=== PATIENT | female | born 1970 | race Caucasian/White ===

== ENCOUNTER 2017-02-23 21:36 | Emergency (ER) | payer OTHER ==
[~2017-02-23] VITALS: Ht 167.6 cm; Wt 57.0 kg
[~2017-02-23 21:36] MED LIST: ALBU18HF INHALATION; ALBU8.5H3 INH; BECL8.7A INH; D-ME118S6 PO; GUAI-637 PO; PRED20TA PO
[2017-02-23 21:52] VITALS: Ht 167.6 cm; Wt 57.0 kg
[2017-02-23] MEDS ORDERED: METHYLPREDNISOLONE 125 MG INJ IM STA (22:33)
[2017-02-23] MEDS ORDERED: ALBUTEROL 0.5% (NEB) 2.5 MG/0.5 ML AMP INH STA (22:33)
[2017-02-23] MEDS ORDERED: IPRATROPIUM (NEB) 0.5 MG/2.5 ML AMP INH STA (22:33)
--- NOTE | 2017-02-23 23:37 | RADRPT ---
PROCEDURE: XR Chest. CLINICAL INDICATION: Asthma exacerbation. Shortness of breath TECHNIQUE: Portable AP upright view of the chest was obtained. COMPARISON: 07/07/2016 FINDINGS: The cardiomediastinal silhouette is within normal limits. The lungs are clear. The diaphragm is nor mal in position and there is no evidence of hyperinflation. There is no evidence for pleural effusi on, pneumothorax or pulmonary vascular congestion. The osseous structures are intact with no eviden ce for acute abnormality. RPTAT:HJJR IMPRESSION: No evidence for acute intrathoracic pathology. Physician Selam Date Time Electronically viewed and signed by Physician Selam on 02/23/2017 23:36 JR/
[2017-02-24] MEDS ORDERED: PRED20TA PO (00:41)
[2017-02-24] MEDS ORDERED: ALBU18HF INHALATION ×2 (00:41→18:03)
[2017-02-24 01:01] VITALS: BP 108/73; PULSE 113; RESP 18; TEMP 99.6
--- NOTE | 2017-02-24 05:56 | ERD ---
ER Documentation Chief Complaint Date/Time DATE: 02/24/17 TIME: 05:53 Chief Complaint asthma getting worse bilateral inspiratory and expiratory wheezing HPI 47-year-old female patient with a past medical history of asthma presents to the ED complaining of wheezing and dry cough that started earlier today. Reports that she does get many asthma attacks. States that she has a burning sensation in her chest when she coughs. Reports that she is using an inhaler. Denies any chest pain, nausea, vomiting, diarrhea, abdominal pain, neck stiffness, fever, chills. ROS All systems reviewed and are negative except as per history of present illness. Medications Home Meds Active Scripts Albuterol Sulfate* (Ventolin HFA*) 18 Gm Hfa.aer.ad, 2 PUFF INHALATION Q4H, #1 INHALER Prov:NICHELLE GONZALES PA-C 02/24/17 Prednisone* (Prednisone*) 20 Mg Tab, 40 MG PO DAILY for 4 Days, TAB Prov:NICHELLE GONZALES PA-C 02/24/17 Guaifenesin* (Robitussin*) 100 Mg/5 Ml Syrup, 200 MG PO Q4H Y for COUGH, #4 OZ Prov:EMERSON GARCIA NP 07/07/16 Albuterol Sulfate* (Proair HFA*) 8.5 Gm Hfa.aer.ad, 2 PUFF INH Q4, #1 INHALER Prov:EMERSON GARCIA NP 07/07/16 Prednisone* (Prednisone*) 20 Mg Tab, 40 MG PO DAILY for 4 Days, TAB Prov:EMERSON GARCIA NP 07/07/16 Prednisone* (Prednisone*) 20 Mg Tab, 40 MG PO DAILY for 4 Days, TAB Prov:SILAS PADILLA DO 02/10/16 Beclomethasone Dip* (Qvar 40*) 7.3 Gm Inha, 1 PUFF INH BID, #1 INHALER Prov:SILAS PADILLA DO 02/10/16 Albuterol Sulfate* (Proair HFA*) 8.5 Gm Hfa.aer.ad, 2 PUFF INH Q6H Y for WHEEZING AND SOB, #1 INHALER Prov:SILAS PADILLA DO 02/10/16 Albuterol Sulfate* (Ventolin HFA*) 18 Gm Hfa.aer.ad, 2 PUFF INHALATION Q4H, #1 INHALER Prov:LINDSAY PARKS MD 12/25/15 Dextromethorphan Hb-Promethazine Hcl (Promethazine DM Syrup) 180 Ml Syrup, 5 ML PO Q6H Y for COUGH, #4 OZ Prov:LINDSAY PARKS MD 12/25/15 Prednisone* (Prednisone*) 20 Mg Tab, 40 MG PO DAILY for 4 Days, TAB Prov:LINDSAY PARKS MD 12/25/15 Allergies Allergies: Coded Allergies: No Known Drug Allergies (Verified Allergy, Unknown, 07/07/16) PMhx/Soc History of Surgery: Yes () Anesthesia Reaction: No Hx Neurological Disorder: No Hx Respiratory Disorders: Yes (Asthma) Hx Cardiac Disorders: No Hx Psychiatric Problems: No Hx Miscellaneous Medical Probl: No Hx Alcohol Use: No Hx Substance Use: No Hx Tobacco Use: No Physical Exam Vitals Vital Signs Date Time Temp Pulse Resp B/P Pulse Ox O2 Delivery O2 Flow Rate FiO2 02/24/17 01:01 99.6 113 18 108/73 94 Room Air 02/23/17 22:59 Simple Mask 02/23/17 22:48 112 20 92 21 02/23/17 21:52 97.8 108 22 114/76 95 Physical Exam Const: Blo-hkm-mwvkmbrce, well-nourished. In no acute distress. Head: Atraumatic, normocephalic Eyes: Normal Conjunctiva without injection. No purulent discharge. PERRL. EOMI ENT: Normal external ear. Ear canal without erythema. Tympanic membrane pearly lau without effusion or bulging. Nasal canal clear with normal turbinates. Moist oropharynx without tonsillar exudates. Non-erythematous pharynx. Uvula midline. No drooling. No trismus. Neck: Full range of motion. No meningismus. No cervical lymphadenopathy. Resp: Expiratory and inspiratory wheezing. No wheezing, rhonchi, rales, or crackles. No accessory muscle use. No retractions. Cardio: Regular rate and rhythm. No murmurs, rubs or gallops. Abd: Soft, non tender, non distended. Normal bowel sounds. No palpable masses. No rebound tenderness. No guarding. Skin: No petechiae or rashes Back: No midline tenderness. No CVA tenderness. Ext: No cyanosis, or edema. Neur: Awake and alert. Psych: Normal Mood and Affect Results 24 hrs Current Medications Medications (Trade) Dose Ordered Sig/Scooby Route PRN Reason Start Time Stop Time Status Last Admin Dose Admin Albuterol (Proventil 0.5% (Neb)) 10 mg ONCE STAT INH 02/23/17 22:33 02/23/17 22:35 DC 02/23/17 22:47 Ipratropium [place] (Atrovent 0.02% (Neb)) 1 mg ONCE STAT INH 02/23/17 22:33 02/23/17 22:35 DC 02/23/17 22:47 Methylprednisolone Sodium Succinate (Solu-Medrol) 125 mg ONCE STAT IM 02/23/17 22:33 02/23/17 22:35 DC 02/23/17 22:58 Procedures/MDM 47-year-old female patient with no sniffing a past medical history presents the ED complaining of wheezing, shortness of breath, cough that started yesterday. Patient is afebrile and nontoxic-appearing. Patient was treated here in the ED with continuous 10 mg albuterol, 1 mg Atrovent, 125 mg IM Solu-Medrol. A chest x-ray was ordered to further evaluate patient. PROCEDURE: XR Chest. CLINICAL INDICATION: Asthma exacerbation. Shortness of breath TECHNIQUE: Portable AP upright view of the chest was obtained. COMPARISON: 07/07/2016 FINDINGS: The cardiomediastinal silhouette is within normal limits. The lungs are clear. The diaphragm is normal in position and there is no evidence of hyperinflation. There is no evidence for pleural effusion, pneumothorax or pulmonary vascular congestion. The osseous structures are intact with no evidence for acute abnormality. RPTAT:HJJR IMPRESSION: No evidence for acute intrathoracic pathology. Patient likely has an asthma exacerbation. Low suspicion for atypical GA, pneumonia, pulmonary embolism, pneumothorax, cardiac tamponade, sinusitis, peritonsillar abscess, mastoiditis, Sai's angina, retropharyngeal abscess, meningitis, sepsis or other emergent conditions. Patient's respiratory status has stabilized while in the department and is appropriate for outpatient work up. Exam and work up not consistent w/ impending respiratory failure or cardiovascular collapse. Patient speaking full sentences and verbalizes that she feels better. Discharge medications: Prednisone, Ventolin Follow up with primary care physician in 1-2 days. Instructed patient to return to the ED sooner for any worsening symptoms. Patient's questions were answered. Patient understood and agreed with discharge plan. Patient discharged stable. Departure Diagnosis: Primary Impression: Asthma with acute exacerbation Asthma severity: unspecified severity Qualified Code: J45.901 - Asthma with acute exacerbation, unspecified asthma severity Condition: Stable Patient Instructions: Asthma Medications, Asthma, Acute (Adult) Referrals: [facility] (PCP) [facility] ([facility]) Usted se kramer hecho un examen mdico de control que le indica que no est en vega condicin que requiera tratamiento urgente en el Departamento de Emergencia. Un estudio ms profundo y el tratamiento de watts condicin pueden esperar sin ningn riesgo hasta que usted sea atendida/o en el consultorio de watts mdico o vega cl gustavo. Es responsabilidad suya arreglar vega chris para el seguimiento del manohar. MANEJO DE CONDICIONES NO URGENTES EN EL FUTURO 1) Si usted tiene un mdico de atencin primaria: Usted debera llamar a watts mdico de atencin primaria antes de venir al departamento de emergencia. Despus de las horas de consultorio, watts doctor o watts asociado/a est disponible por telfono. El mdico o enfermero de alfonso en el servicio telefnico puede asesorarle por bonita medio para atender el problema, o manohar contrario se puede programar vega chris. 2) Si usted no tiene un mdico de atencin primaria: Llame al mdico o clnica de referencia que aparece abajo joao las horas de consultorio para hacer evga chris para que le vean. CLINICAS: [facility] 920 [phone] [id number] [facility] 472 [phone] [address] [facility] 457 [phone] [facility] [facility] [phone] [address] [facility]. [facility] 040 [phone] [address] [facility]. [phone] [address] [facility]. [facility] () Usted se kramer hecho un examen mdico de control que le indica que no est en vega condicin que requiera tratamiento urgente en el Departamento de Emergencia. Un estudio ms profundo y el tratamiento de watts condicin pueden esperar sin ningn riesgo hasta que usted sea atendida/o en el consultorio de watts mdico o vega cl gustavo. Es responsabilidad suya arreglar vega chris para el seguimiento del manohar. MANEJO DE CONDICIONES NO URGENTES EN EL FUTURO 1) Si usted tiene un mdico de atencin primaria: Usted debera llamar a watts mdico de atencin primaria antes de venir al departamento de emergencia. Despus de las horas de consultorio, watts doctor o watts asociado/a est disponible por telfono. El mdico o enfermero de alfonso en el servicio telefnico puede asesorarle por bonita medio para atender el problema, o manohar contrario se puede programar vega chris. 2) Si usted no tiene un mdico de atencin primaria: Llame al mdico o condado institucions de referencia que aparece abajo joao las horas de consultorio para hacer vega chris para que le vean. SI USTED NO PUEDE PAGAR PARA YAYO UN MEDICO puede ir a: [facility] [address] [place] [address] [facility] [address] [place] [address] [facility] [address] [place] [address] [facility] [address] [place] [address] Additional Instructions: Llame al doctor MAANA y kristopher vega CHRIS PARA DENTRO DE 1-2 LEY para evaluacin adicional y tratamiento de watts asma.Dgale a la secretaria que nosotros le instruimos hacer esta chris. Avise o llame si watts condicin se empeora antes de la chris. Regresa aqui si peor o no mejor. NICHELLE GONZALES PA-C Feb 24, 2017 05:56
[2017-02-24 12:54] LABS: ABNORMAL IP MESSAGE 1; BASOPHILS % 0.1 % (0.0-2.0); HEMATOCRIT 42.9 % (37.0-47.0); HEMOGLOBIN 14.9 g/dl (12.0-16.0); LYMPHOCYTES # 0.5 10^3/ul (0.8-2.9); MEAN CORPUSCULAR HEMOGLOBIN 31.4 pg (29.0-33.0); MEAN CORPUSCULAR HGB CONC 34.7 g/dl (32.0-37.0); MEAN CORPUSCULAR VOLUME 90.5 fl (82.0-101.0); MEAN PLATELET VOLUME 10.5 fl (7.4-10.4); MONOCYTE # 0.2 10^3/ul (0.3-0.9); MONOCYTES % 1.2 % (0.0-11.0); NEUTROPHIL # 12.8 10^3/ul (1.6-7.5); PLATELET COUNT 271 10^3/UL (140-415); RED BLOOD COUNT 4.74 10^6/ul (4.20-5.40); RED CELL DISTRIBUTION WIDTH 12.7 % (11.5-14.5); WHITE BLOOD COUNT 13.6 10^3/ul (4.8-10.8)
[2017-02-24 12:56] LABS: POSITIVE DIFF @See below
[2017-02-24 13:13] LABS: INR 0.93; PARTIAL THROMBOPLASTIN TIME 27.5 Sec (25.0-35.0); PROTIME 12.5 Sec (12.2-14.2)
[2017-02-24 13:22] LABS: ANION GAP 24 (8-16); BLOOD UREA NITROGEN 12 mg/dl (7-20); CALCIUM 9.9 mg/dl (8.4-10.2); CARBON DIOXIDE 26 mmol/L (21-31); CHLORIDE 99 mmol/L (97-110); CREATININE 0.51 mg/dl (0.44-1.00); GLUCOSE 208 mg/dl (70-220); POTASSIUM 3.5 mmol/L (3.5-5.1); SODIUM 145 mmol/L (135-144)
[2017-02-24 13:33] LABS: B-TYPE NATRIURETIC PEPTIDE 140 PG/ML (0-125)
[2017-02-24 13:35] LABS: TROPONIN-I < 0.012 ng/ml (0.00-0.12)
--- NOTE | 2017-02-24 15:35 | RADRPT ---
PROCEDURE: CT angiogram of the chest with contrast. CLINICAL INDICATION: Chest pain, asthma. Shortness of breath. TECHNIQUE: CT scan of the chest with contrast was performed on a multidetector high-resolution CT scan. The patient was scanned following the uncomplicated intravenous administration of 90 ml Visip aque 320. Coronal and sagittal reformatted images were obtained from the axial source images. Standa rd CT angiogram of the chest with contrast protocols were performed. 2-D and 3-D reformats were perf ormed. The total exam CTDI equals 35.21 mGy and the total exam DLP equals 363.96 mGy-cm. One or more of the following dose reduction techniques were used: - Automated exposure control. - Adjustment of the mA and/or kV according to patient size. Use of iterative reconstruction technique. COMPARISON: Chest 02/23/2017 FINDINGS: The pulmonary outflow tract, right and left main pulmonary arteries, right and left interlobar and p rimary intersegmental pulmonary arteries are enhance without filling defects. Specifically there are no central pulmonary emboli. No evidence of pulmonary arterial hypertension. The heart is normal limits in size without right heart strain. The aorta is normal in size without evidence of aneurysm or dissection. The celiac axis and SMA are unremarkable. The brachial cephalic artery, right left subclavian arteries and proximal aspects of the right left common carotid and vertebral arteries are unremarkable. No evidence of mediastinal hilar or axillary lymphadenopathy. No evidence of pleural or pericardial effusions. Negative for pneumothorax. The lungs are clear without evidence of acute infiltrates o r pulmonary nodules bilaterally. Images of the upper abdomen are unremarkable. There are degenerative changes of the lower cervical and thoracic spine but no acute osseous findings are osteoblastic/osteolytic lesions. The thoracic and upper abdominal ardon are unremarkable. IMPRESSION: 1. No evidence of central pulmonary emboli. No evidence of pulmonary arterial hypertension or right heart strain. 2. No evidence of aortic aneurysm or dissection. 3. No evidence of thoracic effusions, pneumothorax, acute infiltrates, pulmonary nodules or lymphad enopathy. RPTAT:AAJJ Physician Mick Date Time Electronically viewed and signed by Physician Mick on 02/24/2017 15:35 BM/
[2017-02-24] MEDS ORDERED: IODIXANOL LOCM 100 ML BTL ONE (15:43)
[2017-02-24] MEDS ORDERED: SOD CHLORIDE 0.9% 100 ML ONE (15:43)
[2017-02-24] MEDS ORDERED: AZIT250T94 PO (18:03)
[2017-02-24] MEDS ORDERED: FLUT12HF IH (18:13)
== END 2017-02-24 00:42 | disposition home or self-care (01) ==
LOC: FTE 21:36
DX: J45.901 Unspecified asthma with (acute) exacerbation (principal); R06.02 Shortness of breath
CPT/HCPCS: 71010; 71275; 80048; 83880; 84484; 85025; 85610; 85730; 94644; J2930; Q9967; Z7610; 94640; 96372

== ENCOUNTER 2017-02-24 11:11 | Emergency (ER) | payer OTHER ==
[~2017-02-24] VITALS: Ht 157.5 cm; Wt 59.5 kg
[2017-02-24 11:13] VITALS: Ht 157.5 cm; Wt 59.5 kg
[2017-02-24] MEDS ORDERED: ALBUTEROL 0.083% (NEB) 2.5 MG/3 ML AMP HHN STA (11:24)
[2017-02-24] MEDS ORDERED: predniSONE 20 MG TAB PO ONE (11:30)
[2017-02-24] MEDS ORDERED: IPRATROPIUM (NEB) 0.5 MG/2.5 ML AMP HHN ONE (11:30)
--- NOTE | 2017-02-24 12:13 | ERD ---
ER Documentation Chief Complaint Date/Time DATE: 02/24/17 TIME: 12:10 Chief Complaint ASTHM ATTACK HPI This 47-year-old female presents with an asthma exacerbation. She awoke feeling short of breath and coughing once again. She was actually seen in this ER last night for the same and felt better after treatment but by the morning she was very short of breath and coughing again. Denies fever and chills. Denies chest pain except when coughing. ROS All systems reviewed and are negative except as per history of present illness. Medications Home Meds Active Scripts Salmeterol Xinaf-Fluticasone* (Advair HFA*) 45 Aerosol Inhaler, 2 INH IH BID , #1 INHALER Prov:FAHEEM SEWELL DO 02/24/17 Azithromycin* (Zithromax*) 250 Mg Tablet, 250 MG PO DAILY for 4 Days, TAB Prov:FAHEEM SEWELL 02/24/17 Albuterol Sulfate* (Ventolin HFA*) 18 Gm Hfa.aer.ad, 2 PUFF INHALATION Q4H, #1 INHALER Prov:FAHEEM SEWELL DO 02/24/17 Albuterol Sulfate* (Ventolin HFA*) 18 Gm Hfa.aer.ad, 2 PUFF INHALATION Q4H, #1 INHALER Prov:NICHELLE GONZALES PA-C 02/24/17 Prednisone* (Prednisone*) 20 Mg Tab, 40 MG PO DAILY for 4 Days, TAB Prov:NICHELLE GONZALES PA-C 02/24/17 Guaifenesin* (Robitussin*) 100 Mg/5 Ml Syrup, 200 MG PO Q4H Y for COUGH, #4 OZ Prov:EMERSON GARCIA NP 07/07/16 Albuterol Sulfate* (Proair HFA*) 8.5 Gm Hfa.aer.ad, 2 PUFF INH Q4, #1 INHALER Prov:EMERSON GARCIA NP 07/07/16 Prednisone* (Prednisone*) 20 Mg Tab, 40 MG PO DAILY for 4 Days, TAB Prov:EMERSON GARCIA NP 07/07/16 Prednisone* (Prednisone*) 20 Mg Tab, 40 MG PO DAILY for 4 Days, TAB Prov:SILAS PADILLA DO 02/10/16 Beclomethasone Dip* (Qvar 40*) 7.3 Gm Inha, 1 PUFF INH BID, #1 INHALER Prov:SILAS PADILLA DO 02/10/16 Albuterol Sulfate* (Proair HFA*) 8.5 Gm Hfa.aer.ad, 2 PUFF INH Q6H Y for WHEEZING AND SOB, #1 INHALER Prov:SILAS PADILLA DO 02/10/16 Albuterol Sulfate* (Ventolin HFA*) 18 Gm Hfa.aer.ad, 2 PUFF INHALATION Q4H, #1 INHALER Prov:LINDSAY PARKS MD 12/25/15 Dextromethorphan Hb-Promethazine Hcl (Promethazine DM Syrup) 180 Ml Syrup, 5 ML PO Q6H Y for COUGH, #4 OZ Prov:LINDSAY PARKS MD 12/25/15 Prednisone* (Prednisone*) 20 Mg Tab, 40 MG PO DAILY for 4 Days, TAB Prov:LINDSAY PARKS MD 12/25/15 Allergies Allergies: Coded Allergies: No Known Drug Allergies (Verified Allergy, Unknown, 07/07/16) PMhx/Soc History of Surgery: Yes () Anesthesia Reaction: No Hx Neurological Disorder: No Hx Respiratory Disorders: Yes (Asthma) Hx Cardiac Disorders: No Hx Psychiatric Problems: No Hx Miscellaneous Medical Probl: No Hx Alcohol Use: No Hx Substance Use: No Hx Tobacco Use: No Physical Exam Vitals Vital Signs Date Time Temp Pulse Resp B/P Pulse Ox O2 Delivery O2 Flow Rate FiO2 02/24/17 19:00 102 20 111/71 97 Room Air 02/24/17 18:07 115 16 101/72 98 3.0 02/24/17 15:54 98.3 100 21 116/71 97 Mechanical Ventilator 2.0 Nasal Cannula 02/24/17 14:19 Nasal Cannula 2 02/24/17 11:45 110 22 93 21 02/24/17 11:13 98.3 119 24 117/77 89 Physical Exam Const: [] Moderate distress Head: Atraumatic Eyes: Normal Conjunctiva ENT: Normal External Ears, Nose and Mouth. Neck: Full range of motion..~ No meningismus. Resp: Mild bilateral expiratory wheezing without prolonged expiratory time. Cardio: Regular tachycardia, no murmurs Abd: Soft, non tender, non distended. Normal bowel sounds Skin: No petechiae or rashes Back: No midline or flank tenderness Ext: No cyanosis, or edema Neur: Awake and alert and oriented 3, no focal deficits Psych: Normal Mood and Affect Result Diagram: 02/24/17 1455 02/24/17 1455 Results 24 hrs Laboratory Tests Test 02/24/17 14:55 White Blood Count 16.710^3/ul Red Blood Count 4.4410^6/ul Hemoglobin 14.5g/dl Hematocrit 40.5% Mean Corpuscular Volume 91.2fl Mean Corpuscular Hemoglobin 32.7pg Mean Corpuscular Hemoglobin Concent 35.8g/dl Red Cell Distribution Width 12.6% Platelet Count 39676^3/UL Mean Platelet Volume 10.3fl Segmented Neutrophils % (Manual) 94% Lymphocytes % (Manual) 3% Monocytes % (Manual) 3% Nucleated Red Blood Cells % 0.0/100WBC Absolute Lymphocytes (Manual) 0.510^3/ul Absolute Monocytes (Manual) 0.510^3/ul Thrombocytosis 1% Platelet Estimate NORMAL Prothrombin Time 12.6Sec Prothrombin Time Ratio 1.0 INR International Normalized Ratio 0.94 Activated Partial Thromboplast Time 26.2Sec Sodium Level 145mmol/L Potassium Level 3.2mmol/L Chloride Level 99mmol/L Carbon Dioxide Level 22mmol/L Anion Gap 27 Blood Urea Nitrogen 11mg/dl Creatinine 0.54mg/dl Glucose Level 169mg/dl Calcium Level 10.2mg/dl Troponin I < 0.012ng/ml B-Type Natriuretic Peptide 209PG/ML Current Medications Medications (Trade) Dose Ordered Sig/Scooby Route PRN Reason Start Time Stop Time Status Last Admin Dose Admin Albuterol (Proventil 0.083% (Neb)) 10 mg ONCE STAT N 02/24/17 11:24 02/24/17 11:26 DC 02/24/17 11:45 Ipratropium [place] (Atrovent 0.02% (Neb)) 1 mg ONCE ONCE N 02/24/17 11:30 02/24/17 11:31 DC 02/24/17 11:45 Prednisone 40 mg 40 mg ONCE ONCE PO 02/24/17 11:30 02/24/17 11:31 DC 02/24/17 11:37 Ceftriaxone Sodium (Rocephin) 50 ml @ 100 mls/hr ONCE ONCE IVPB 02/24/17 16:00 02/24/17 16:29 DC 02/24/17 16:52 Azithromycin (Zithromax) 500 mg ONCE ONCE PO 02/24/17 16:00 02/24/17 16:01 DC 02/24/17 16:52 Ketorolac Tromethamine (Toradol) 30 mg ONCE STAT IV 02/24/17 15:55 02/24/17 15:56 DC 02/24/17 16:52 Miscellaneous Medication (Gi Cocktail (2)) 40 ml ONCE ONCE PO 02/24/17 18:00 02/24/17 18:01 DC 02/24/17 18:05 Procedures/MDM Patient with history of asthma although not improving from albuterol at home. Feeling chest discomfort as well as shortness of breath and persistently tachycardic she remains secondary to albuterol. Full workup was performed to look for any signs of cardiac dysfunction, infection, pulmonary embolism. CTA is negative for pulmonary embolism and Acute process in the lungs. Patient may have a bronchitis which is making refractory to treatment as she did have an elevated white blood cell count yesterday before she received any steroids. She is feeling much better after treatments today. She was also given Rocephin and azithromycin for possible bronchitis. Mild hypokalemia likely secondary to albuterol. She is feeling better currently. I am going to discharge her with albuterol, continue with her prednisone, azithromycin for 4 more days and Advair inhaler. Primary care follow-up in the next 2-3 days and return precautions to the ER. EKG interpretation: Sinus tachycardia rate of 117, normal axis, no ST or T-wave changes concerning for acute ischemia, normal intervals. CTA pulmonary angiogram interpretation: No PE, no infiltrates, no pneumothorax, no pulmonary edema or fractures. professor of voice interpretation: Persistent sinus tachycardia without other arrhythmia. Departure Diagnosis: Primary Impression: Asthma with acute exacerbation Additional Impression: Bronchitis Condition: Stable FAHEEM SEWELL DO Feb 24, 2017 12:13
[2017-02-24 15:13] LABS: ABNORMAL IP MESSAGE 1; HEMATOCRIT 40.5 % (37.0-47.0); HEMOGLOBIN 14.5 g/dl (12.0-16.0); MEAN CORPUSCULAR HEMOGLOBIN 32.7 pg (29.0-33.0); MEAN CORPUSCULAR HGB CONC 35.8 g/dl (32.0-37.0); MEAN CORPUSCULAR VOLUME 91.2 fl (82.0-101.0); MEAN PLATELET VOLUME 10.3 fl (7.4-10.4); PLATELET COUNT 285 10^3/UL (140-415); RED BLOOD COUNT 4.44 10^6/ul (4.20-5.40); RED CELL DISTRIBUTION WIDTH 12.6 % (11.5-14.5); WHITE BLOOD COUNT 16.7 10^3/ul (4.8-10.8)
[2017-02-24 15:15] LABS: POSITIVE DIFF @See below
[2017-02-24 15:26] LABS: INR 0.94; PROTIME 12.6 Sec (12.2-14.2)
[2017-02-24 15:27] LABS: PARTIAL THROMBOPLASTIN TIME 26.2 Sec (25.0-35.0)
[2017-02-24 15:33] LABS: ANION GAP 27 (8-16); BLOOD UREA NITROGEN 11 mg/dl (7-20); CALCIUM 10.2 mg/dl (8.4-10.2); CARBON DIOXIDE 22 mmol/L (21-31); CHLORIDE 99 mmol/L (97-110); CREATININE 0.54 mg/dl (0.44-1.00); GLUCOSE 169 mg/dl (70-220); POTASSIUM 3.2 mmol/L (3.5-5.1); SODIUM 145 mmol/L (135-144)
[2017-02-24 15:37] LABS: GIANT THROMBO% (M) 1 % (0-0); MONOCYTES % (M) 3 % (0-11); PLATELET ESTIMATE NORMAL
[2017-02-24 15:44] LABS: B-TYPE NATRIURETIC PEPTIDE 209 PG/ML (0-125)
[2017-02-24 15:49] LABS: TROPONIN-I < 0.012 ng/ml (0.00-0.12)
[2017-02-24 15:54] VITALS: TEMP 98.3
[2017-02-24] MEDS ORDERED: KETOROLAC 30 MG INJ IV STA (15:55)
[2017-02-24] MEDS ORDERED: CEFTRIAXONE 1 GM/50 ML (PMX) 50 ML IVPB ONE (16:00)
[2017-02-24] MEDS ORDERED: AZITHROMYCIN 250 MG TAB PO ONE (16:00)
[2017-02-24] MEDS ORDERED: LIDOCAINE/MYLANTA 40 ML BTL PO ONE (18:00)
[2017-02-24] MEDS ORDERED: AZIT250T94 PO (18:03)
[2017-02-24] MEDS ORDERED: ALBU18HF INHALATION (18:03)
[2017-02-24] MEDS ORDERED: FLUT12HF IH (18:13)
[2017-02-24 19:00] VITALS: BP 111/71; PULSE 102; RESP 20
== END 2017-02-24 19:05 | disposition home or self-care (01) ==
LOC: FTE 11:11
DX: J45.901 Unspecified asthma with (acute) exacerbation (principal); J20.9 Acute bronchitis, unspecified
CPT/HCPCS: 36415; 80048; 83880; 84484; 85025; 85610; 85730; 93005; 94644; 96374; 96375; J0696; J1885; J7512; Z7502; Z7610

== ENCOUNTER 2018-02-27 02:50 | Inpatient (IN) | END 2018-03-03 14:29 | disposition home or self-care (01) | DRG 202 ==

== ENCOUNTER 2018-11-01 19:52 | Emergency (ER) | payer MEDICAID ==
[~2018-11-01] VITALS: Ht 157.5 cm; Wt 58.4 kg
[~2018-11-01 19:52] MED LIST changes: -ALBU8.5H3 INH; -BECL8.7A INH; -D-ME118S6 PO; +FLUT1AER INH; -GUAI-637 PO; +MED4DP PO; +MONT10TA24 PO; -PRED20TA PO; +TIOT18CA INH
[2018-11-01 20:20] VITALS: Ht 157.5 cm; Wt 58.4 kg
[2018-11-01] MEDS ORDERED: ALBUTEROL 0.083% (NEB) 2.5 MG/3 ML AMP NEB STA (23:56)
[2018-11-01] MEDS ORDERED: DEXAMETHASONE 10 MG/ML 1 ML INJ IM STA (23:56)
--- NOTE | 2018-11-02 00:21 | ERD ---
ER Documentation Chief Complaint Chief Complaint sob x 2 days HPI 48-year-old female with past medical history of asthma who presents with 2-day complaint of shortness of breath as well as cough. Cough has been nonproductive. Has had rhinorrhea over this period of time as well with head congestion. Her usual asthma triggers are her allergies. She does not take any allergy medications currently. She otherwise denies fevers, chills, nausea, vomiting, diarrhea, abdominal pain, urinary symptoms. ROS All systems reviewed and are negative except as per history of present illness. Medications Home Meds Active Scripts Loratadine* (Claritin*) 5 Mg Tab.rapdis, 5 MG PO DAILY, #30 TAB Prov:DEBORAH DANIELS PA-C 11/02/18 Prednisone* (Prednisone*) 20 Mg Tab, 40 MG PO DAILY for 4 Days, TAB Prov:DEBORAH DANIELS PA-C 11/02/18 Methylprednisolone* (Medrol* DOSE PACK) 4 Mg/Dose-Pack Tab.ds.pk, 4 MG PO . DIRECTED, #1 PACKET Prov:LISBETH SOTOMAYOR 03/03/18 Montelukast Sodium* (Montelukast Sodium*) 10 Mg Tablet, 10 MG PO HS for 30 Days, #30 TAB 4 Refills Prov:LISBETH SOTOMAYOR 03/03/18 Fluticasone-Vilanterol (Breo Ellipta Inhaler) 100-25 Mcg/Actuation Aer.pow.ba, 1 INH INH DAILY for 30 Days, #1 INHALER 4 Refills Prov:LISBETH SOTOMAYOR 03/03/18 Tiotropium [place]* (Spiriva*) 18 Mcg Cap.w.dev, 1 INH INH DAILY for 30 Days, #30 CAP 4 Refills Prov:LISBETH SOTOMAYOR 03/03/18 Albuterol Sulfate* (Ventolin HFA*) 18 Gm Hfa.aer.ad, 2 PUFF INHALATION Q4H, #1 INHALER Prov:NICHELLE GONZALES PA-C 02/24/17 Allergies Allergies: Coded Allergies: No Known Drug Allergies (Unverified Allergy, Unknown, 02/27/18) PMhx/Soc History of Surgery: Yes ( SECTION) Anesthesia Reaction: No Hx Neurological Disorder: No Hx Respiratory Disorders: Yes (asthma) Hx Cardiac Disorders: No Hx Psychiatric Problems: No Hx Miscellaneous Medical Probl: No Hx Alcohol Use: No Hx Substance Use: No Hx Tobacco Use: No Smoking Status: Never smoker FmHx Family History: No diabetes, No coronary disease, No other Physical Exam Vitals Vital Signs Date Temp Pulse Resp B/P (MAP) Pulse Ox O2 O2 Flow FiO2 Time Delivery Rate 11/02/18 95 20 93 Room Air 00:57 11/02/18 86 20 97 21 00:24 11/01/18 98.8 93 18 131/80 93 20:20 (97) Physical Exam I have reviewed the triage vital signs. Const: Well nourished, well developed, appears stated age Eyes: PERRL, no conjunctival injection HENT: NCAT, Neck supple without meningismus CV: RRR, Warm, well-perfused extremities RESP: mild end exp wheezing to b/l lung orellana, Unlabored respiratory effort, speaking in full sentences, no rhonci, rales GI: soft, non-tender, non-distended, no masses MSK: No gross deformities appreciated Skin: Warm, dry. No rashes Neuro: grossly non focal Psych: Appropriate mood and affect. Results 24 hrs Current Medications Medications Dose Sig/Scooby Start Time Status Last (Trade) Ordered Route PRN Stop Time Admin Dose Reason Admin Albuterol 5 mg ONCE STAT 11/01/18 DC 11/02/18 (Proventil NEB 23:56 11/02/18 00:24 0.083% (Neb)) 00:02 60 mg ONCE STAT 11/01/18 DC 11/02/18 Dexamethasone IM 23:56 11/02/18 00:17 (Decadron) 00:02 Procedures/MDM 48 yo F with asthma who presents with cough and mild expiratory wheezing ML 2/2 asthma exacerbation. Mild exacerbation: No AMS, silent respirations or other sign of impending ventilatory failure. Patient diagnosed with asthma years prior. Never intubated or admitted to the hospital for asthma exacerbation. Unlikely PNA, CHF, COPD (Nonsmoker), FBAO, GERD. Workup Defer labs and imaging given clinically in exacerbation of known asthma with similar exacerbation presentations per patient. Therapies: steroids Albuterol Claritin Reassessment: Patient improved with albuterol and steroids Disposition: Discharge home with return precautions. Aside from this acute exacerbation patient has been well controlled on baseline home regimen. Advised to follow up with primary care physician within next 24-48 hours. DEBORAH DANIELS PA-C Nov 02, 2018 00:21
[2018-11-02] MEDS ORDERED: PRED20TA PO (01:23)
[2018-11-02] MEDS ORDERED: LORA5TAB4 PO (01:27)
[2018-11-02 02:01] VITALS: BP 119/76; PULSE 86; RESP 18
== END 2018-11-02 02:02 | disposition home or self-care (01) ==
LOC: FTE 19:52
DX: J45.901 Unspecified asthma with (acute) exacerbation (principal)
CPT/HCPCS: 94664; 96372; J1100; Z7502; Z7610

== ENCOUNTER 2019-06-05 03:59 | Emergency (ER) | payer MEDICAID ==
[~2019-06-05] VITALS: Ht 162.6 cm; Wt 57.8 kg
[~2019-06-05 03:59] MED LIST changes: +BECL10.6 IH; +LORA5TAB4 PO; +PRED20TA PO
[2019-06-05 04:01] VITALS: Ht 162.6 cm; Wt 57.8 kg
[2019-06-05] MEDS ORDERED: ALBUTEROL 0.083% (NEB) 2.5 MG/3 ML AMP NEB STA (04:08)
[2019-06-05] MEDS ORDERED: IPRATROPIUM (NEB) 0.5 MG/2.5 ML AMP NEB STA (04:08)
[2019-06-05] MEDS ORDERED: ONDANSETRON 4 MG INJ IV STA (04:22)
[2019-06-05] MEDS ORDERED: DEXAMETHASONE 10 MG/ML 1 ML INJ IV ONE (04:30)
[2019-06-05 06:00] VITALS: BP 132/70; PULSE 82; RESP 18
== END 2019-06-05 06:01 | disposition home or self-care (01) ==
LOC: E/R 03:59
DX: J45.901 Unspecified asthma with (acute) exacerbation (principal); R40.2142 Coma scale, eyes open, spontaneous, at arrival to emergency department; R40.2362 Coma scale, best motor response, obeys commands, at arrival to emergency department; R40.2252 Coma scale, best verbal response, oriented, at arrival to emergency department
CPT/HCPCS: 93005; 94664; 96374; J1100; J2405; Z7502; Z7610